=== PATIENT | male | born 1970 | race African-American/Black ===

== ENCOUNTER 2019-03-28 15:49 | Inpatient (IN) | payer OTHER ==
[2019-03-28 19:23] VITALS: BMI 20.6
--- NOTE | 2019-03-28 21:01 | HP ---
COWS - Scale Resting Pulse: 0= [place] 80 or Below Sweatin=Flushed/Facial Moisture Restless Observation: 1= Difficult to Sit Still Pupil Size: 0= Normal to Room Light Bone or Joint Aches: 2= Severe Diffuse Aches Runny Nose/ Eye Tearin= Runny Nose/Eyes GI Upset > 30mins: 3= Vomiting/Diarrhea (vomiting x 2, diarrhea x 1) Tremor Observation: 2= Slight Tremor Visible Yawning Observation: 0= None Anxiety or Irritability: 2=Irritable/Anxious Goose Flesh Skin: 3=Piloerection COWS Score: 17 CIWA Score - Admission Criteria OASAS Guidelines: Admission for Medically Managed Detox: Requires at least one of the followin. CIWA greater than 12 2. Seizures within the past 24 hours 3. Delirium tremens within the past 24 hours 4. Hallucinations within the past 24 hours 5. Acute intervention needed for co occurring medical disorder 6. Acute intervention needed for co occurring psychiatric disorder 7. Severe withdrawal that cannot be handled at a lower level of care (continued vomiting, continued diarrhea, abnormal vital signs) requiring intravenous medication and/or fluids 8. Admitting History and Physical - Smoking History Smoking history: Current every day smoker Have you smoked in the past 12 months: Yes Aproximately how many cigarettes per day: 10 - Alcohol/Substance Use Hx Alcohol Use: Yes Admission ROS [facility] - [facility] Chief Complaint: Heroin withdrawal symptoms Allergies/Adverse Reactions: Allergies Allergy/AdvReac Type Severity Reaction Status Date / Time No Known Drug Allergies Allergy Verified 03/28/19 19:08 History of Present Illness: 48 years old male with a long history of heroin dependence (since 1989) is seeking admission to detox. Patient has been in previous detox, last at [facility] and reports 5 years of sobriety. He denies past medical history and denies suicidal ideation at this time Confidential Drug Utilization Report Search Terms: wayne lutz, 1970 Search Date: 03/28/2019 08:56:52 PM The Drug Utilization Report below displays all of the controlled substance prescriptions, if any, that your patient has filled in the last twelve months. The information displayed on this report is compiled from pharmacy submissions to the Department, and accurately reflects the information as submitted by the pharmacies. There are no results for the search terms that you entered. [address] [facility] Department of Health - [place] of Narcotic Enforcement 03/28/2019 20:56:52 Exam Limitations: No Limitations - Ebola screening Have you traveled outside of the country in the last 21 days: No Have you had contact with anyone from an Ebola affected area: No - Review of Systems Constitutional: Chills, Malaise EENT: reports: No Symptoms Reported Respiratory: reports: No Symptoms reported Cardiac: reports: No Symptoms Reported GI: reports: Abd. Pain w/ defecation, Poor Appetite, Poor Fluid Intake, Vomiting , Abdominal cramping : reports: No Symptoms Reported Musculoskeletal: reports: No Symptoms Reported Integumentary: reports: Dryness, Flushing Neuro: reports: Tremors Endocrine: reports: No Symptoms Reported Hematology: reports: No Symptoms Reported Psychiatric: reports: Judgement Intact, Mood/Affect Appropiate Other Systems: Reviewed and Negative Patient History - Patient Medical History Hx Anemia: No Hx Asthma: No Hx Chronic Obstructive Pulmonary Disease (COPD): No Hx Cancer: No Hx Cardiac Disorders: No Hx Congestive Heart Failure: No Hx Hypertension: No Hx Hypercholesterolemia: No Hx Pacemaker: No HX Cerebrovascular Accident: No Hx Seizures: No Hx Dementia: No Hx Diabetes: No Hx Gastrointestinal Disorders: No Hx Liver Disease: No Hx Genitourinary Disorders: No Hx Sexually Transmitted Disorders: No Hx Renal Disease (ESRD): No Hx Thyroid Disease: No Hx Human Immunodeficiency Virus (HIV): No Hx Hepatitis C: No Hx Depression: No Hx Suicide Attempt: No (Denies suicidal ideation at this time) Hx Bipolar Disorder: No Hx Schizophrenia: No - Patient Surgical History Past Surgical History: Yes Hx Neurologic Surgery: No Hx Cataract Extraction: No Hx Cardiac Surgery: No Hx Lung Surgery: No Hx Breast Surgery: No Hx Breast Biopsy: No Hx Abdominal Surgery: No Hx Appendectomy: No Hx Cholecystectomy: No Hx Genitourinary Surgery: No Hx Section: No Hx Orthopedic Surgery: Yes (1999 mandible fracture) Anesthesia Reaction: No - PPD History Previous Implant?: Yes Documented Results: Negative w/o proof Implanted On Prior [facility] Admission?: Yes Date: 06/17/13 Results: 0 mm PPD to be Administered?: Yes - Reproductive History Patient is a Female of Child Bearing Age (11 -55 yrs old): No (male) - Smoking Cessation Smoking history: Current every day smoker Have you smoked in the past 12 months: Yes Aproximately how many cigarettes per day: 10 Hx Chewing Tobacco Use: No Initiated information on smoking cessation: Yes 'Breaking Loose' booklet given: 03/28/19 - Substances abused Heroin Substance route: Inhalation Frequency: Daily Amount used: 6 bags Age of first use: 19 Date of last use: 03/28/19 Admission Physical Exam [facility] - Vital Signs Vital Signs: Vital Signs - 24 hr 03/28/19 19:15 Temperature 98.8 F Pulse Rate 80 Respiratory 16 Rate Blood Pressure 123/77 - Physical General Appearance: Yes: Moderate Distress, Tremorous, Sweating, Anxious HEENTM: Yes: Within Normal Limits Respiratory: Yes: Lungs Clear, Normal Breath Sounds, No Respiratory Distress Neck: Yes: Supple Breast: Yes: Breast Exam Deferred Cardiology: Yes: Regular Rhythm, Regular Rate Abdominal: Yes: Normal Bowel Sounds, Soft Genitourinary: Yes: Within Normal Limits Back: Yes: Normal Inspection Extremities: Yes: Tremors Neurological: Yes: Fully Oriented, Alert, Motor Strength 5/5 Integumentary: Yes: Normal Color Lymphatic: Yes: Within Normal Limits - Diagnostic (1) Opioid dependence with withdrawal Current Visit: Yes Status: Acute (2) Cocaine dependence with withdrawal Current Visit: Yes Status: Chronic (3) Nicotine dependence Current Visit: Yes Status: Chronic Qualifiers: Nicotine product type: cigarettes Substance use status: uncomplicated Qualified Code(s): F17.210 - Nicotine dependence, cigarettes, uncomplicated Cleared for Admission [facility] - Detox or Rehab [facility] Level of Care: Medically Managed Detox Regimen/Protocol: Methadone Breathalyzer - Breathalyzer Breathalyzer: 0 Urine Drug Screen - Test Device Lot number: [id number] Expiration date: 12/06/20 - Control Is test valid?: Yes - Results Drug screen NEGATIVE: No Urine drug screen results: ALLISON-Cocaine, FEN-Fentanyl, MOP-Opiates, BZO- Benzodiazepines Inpatient Rehab Admission - Rehab Decision to Admit Inpatient rehab admission?: No
[2019-03-28] MEDS ORDERED: MENTHOL/PHENOL 1 EACH UD MM PRN (21:12)
[2019-03-28] MEDS ORDERED: IBUPROFEN 400 MG TABLET (FP) PO PRN (21:12)
[2019-03-28] MEDS ORDERED: MAGNESIUM HYDROX 2400MG/30ML ORAL SUSPENSION 30 ML CUP PO PRN (21:12)
[2019-03-28] MEDS ORDERED: MAGNESIUM CITRATE 300 ML BOTTLE PO PRN (21:12)
[2019-03-28] MEDS ORDERED: cloNIDine HCL 0.1 MG TABLET PO PRN (21:12)
[2019-03-28] MEDS ORDERED: ACETAMINOPHEN 325 MG TABLET (FP) PO PRN ×2 (21:12)
[2019-03-28] MEDS ORDERED: BISMUTH SUBSALICYLATE 524 MG/30 ML UD PO PRN (21:12)
[2019-03-28] MEDS ORDERED: MAG HYDROX/AL HYDROX/SIMETH 30 ML UNIT-DOSE CUP PO PRN (21:12)
[2019-03-28] MEDS ORDERED: METHADONE HCL 10 MG TABLET (FOR DETOX USE ONLY) PO ONE (22:15)
[2019-03-28] MEDS: THIAMINE HCL 100 MG TABLET (FP) PO SCH (22:32)
[2019-03-29] MEDS ORDERED: METHADONE HCL 5 MG TABLET (FOR DETOX USE ONLY) PO ONE (10:00)
[2019-03-29] MEDS: hydrOXYzine PAMOATE 25 MG CAPSULE (FP) PO PRN ×2 (10:13→21:36)
[2019-03-29] MEDS: PRENATAL VITAMINS W/ FOLIC ACID TABLET (FP) PO SCH (10:13)
[2019-03-29] MEDS: METHOCARBAMOL 500 MG TABLET PO PRN ×2 (10:13→21:36)
[2019-03-29 10:18] LABS: HEMATOCRIT 39.1 % (35.4-49); HEMOGLOBIN 12.7 GM/dL (11.7-16.9); MCH 30.5 pg (25.7-33.7); MCHC 32.5 g/dl (32.0-35.9); MEAN CELL VOLUME 93.8 fl (80-96); MEAN PLT VOLUME 7.8 fl (7.5-11.1); PLATELET COUNT 233 K/MM3 (134-434); RBC 4.17 M/mm3 (4.00-5.60); RDW 13.5 % (11.9-15.9); WHITE BLOOD COUNT 3.8 K/mm3 (4.0-10.0)
[2019-03-29 10:34] LABS: ALBUMIN 3.1 g/dl (3.4-5.0); BILIRUBIN,TOTAL 0.3 mg/dL (0.2-1); BLOOD UREA NITROGEN 14.4 mg/dL (7-18); CALCIUM 8.5 mg/dL (8.5-10.1); CREATININE 1.1 mg/dL (0.55-1.3); POTASSIUM 4.7 mmol/L (3.5-5.1); TOT PROT 5.8 g/dl (6.4-8.2)
--- NOTE | 2019-03-29 10:37 | EKG ---
Test Reason : Blood Pressure : / mmHG Vent. Rate : 062 BPM Atrial Rate : 062 BPM P-R Int : 108 ms QRS Dur : 086 ms QT Int : 404 ms P-R-T Axes : 054 068 066 degrees QTc Int : 410 ms SINUS RHYTHM WITH SHORT KS MODERATE VOLTAGE CRITERIA FOR LVH, MAY BE NORMAL VARIANT BORDERLINE ECG NO PREVIOUS ECGS AVAILABLE Confirmed by KEVIN ROCHA, TERESA ([id number]) on 03/29/2019 10:36:44 AM Referred By: Confirmed By:TERESA BROWN MD
--- NOTE | 2019-03-29 13:04 | PN ---
BHS COWS - Scale Resting Pulse: 0= [place] 80 or Below Sweatin= Chills/Flushing Restless Observation: 0= Sits Still Pupil Size: 1= Pupils >than Normal Bone or Joint Aches: 2= Severe Diffuse Aches Runny Nose/ Eye Tearin= Nasal Congestion GI Upset > 30mins: 1= Stomach Cramp Tremor Observation of Outstretched Hands: 2= Slight Tremor Visible Yawning Observation: 1= 1-2x During Session Anxiety or Irritability: 2=Irritable/Anxious Goose Flesh Skin: 3=Piloerection COWS Score: 14 BHS Progress Note (SOAP) Subjective: 48 years old male admitted on 03/28/19 for opiate withdrawal sx management treated with methadone detox regimen body aches joints pain restlessness Objective: 03/29/19 13:06 Vital Signs Temperature 97.5 F L 03/29/19 09:13 Pulse Rate 67 03/29/19 09:13 Respiratory Rate 18 03/29/19 09:13 Blood Pressure 107/68 03/29/19 09:13 O2 Sat by Pulse Oximetry (%) Laboratory Last Values WBC 3.8 K/mm3 (4.0-10.0) L 03/29/19 08:15 RBC 4.17 M/mm3 (4.00-5.60) 03/29/19 08:15 Hgb 12.7 GM/dL (11.7-16.9) 03/29/19 08:15 Hct 39.1 % (35.4-49) 03/29/19 08:15 MCV 93.8 fl (80-96) 03/29/19 08:15 MCH 30.5 pg (25.7-33.7) 03/29/19 08:15 MCHC 32.5 g/dl (32.0-35.9) 03/29/19 08:15 RDW 13.5 % (11.9-15.9) 03/29/19 08:15 Plt Count 233 K/MM3 (134-434) 03/29/19 08:15 MPV 7.8 fl (7.5-11.1) 03/29/19 08:15 Sodium 143 mmol/L (136-145) 03/29/19 08:15 Potassium 4.7 mmol/L (3.5-5.1) 03/29/19 08:15 Chloride 110 mmol/L (98-107) H 03/29/19 08:15 Carbon Dioxide 31 mmol/L (21-32) 03/29/19 08:15 Anion Gap 2 MMOL/L (8-16) L 03/29/19 08:15 BUN 14.4 mg/dL (7-18) 03/29/19 08:15 Creatinine 1.1 mg/dL (0.55-1.3) 03/29/19 08:15 Est GFR (CKD-EPI)AfAm 90.88 03/29/19 08:15 Est GFR (CKD-EPI)NonAf 78.41 03/29/19 08:15 Random Glucose 87 mg/dL (74-106) 03/29/19 08:15 Calcium 8.5 mg/dL (8.5-10.1) 03/29/19 08:15 Total Bilirubin 0.3 mg/dL (0.2-1) 03/29/19 08:15 AST 21 U/L (15-37) 03/29/19 08:15 ALT 41 U/L (13-61) 03/29/19 08:15 Alkaline Phosphatase 57 U/L (45-117) 03/29/19 08:15 Total Protein 5.8 g/dl (6.4-8.2) L 03/29/19 08:15 Albumin 3.1 g/dl (3.4-5.0) L 03/29/19 08:15 RPR Titer Nonreactive (NONREACTIVE) 03/29/19 08:15 lab noted Assessment: 03/29/19 13:06 opiate withdrawal sx Plan: continue methadone detox regimen
[2019-03-29] MEDS: THIAMINE HCL 100 MG TABLET (FP) PO SCH (21:36)
[2019-03-29] MEDS: MELATONIN 5 MG TABLETS PO PRN (21:36)
[2019-03-30] MEDS ORDERED: METHADONE HCL 10 MG TABLET (FOR DETOX USE ONLY) PO ONE (10:00)
[2019-03-30] MEDS: PRENATAL VITAMINS W/ FOLIC ACID TABLET (FP) PO SCH (10:06)
--- NOTE | 2019-03-30 13:28 | PN ---
BHS COWS - Scale Resting Pulse: 0= [place] 80 or Below Sweatin= Chills/Flushing Restless Observation: 0= Sits Still Pupil Size: 1= Pupils >than Normal Bone or Joint Aches: 1= Mild Discomfort Runny Nose/ Eye Tearin= Nasal Congestion GI Upset > 30mins: 1= Stomach Cramp Tremor Observation of Outstretched Hands: 1= Tremor [place], Not Seen Yawning Observation: 1= 1-2x During Session Anxiety or Irritability: 2=Irritable/Anxious Goose Flesh Skin: 0=Smooth Skin COWS Score: 9 BHS Progress Note (SOAP) Subjective: 48 YEARS OLD MALE ADMITTED ON 03/28/19 FOR OPIATE WITHDRAWAL SX MANAGEMENT TREATED WITH METHADONE DETOX REGIMEN FEELING BETTER TODAY SLEPT THROUGH THE NIGHT TOLERATED FOOD AND FLUID WELL MILD BODY ACHE LESS TREMOR DISCUSS MEDICATION ASSISTED TREATMENT PROGRAM AND PAPER [place] MACHINE TENDER NARCAN FROM PHARMACY Objective: 03/30/19 13:27 Vital Signs Temperature 98.4 F 03/30/19 12:59 Pulse Rate 59 L 03/30/19 12:59 Respiratory Rate 18 03/30/19 12:59 Blood Pressure 125/78 03/30/19 12:59 O2 Sat by Pulse Oximetry (%) Laboratory Last Values WBC 3.8 K/mm3 (4.0-10.0) L 03/29/19 08:15 RBC 4.17 M/mm3 (4.00-5.60) 03/29/19 08:15 Hgb 12.7 GM/dL (11.7-16.9) 03/29/19 08:15 Hct 39.1 % (35.4-49) 03/29/19 08:15 MCV 93.8 fl (80-96) 03/29/19 08:15 MCH 30.5 pg (25.7-33.7) 03/29/19 08:15 MCHC 32.5 g/dl (32.0-35.9) 03/29/19 08:15 RDW 13.5 % (11.9-15.9) 03/29/19 08:15 Plt Count 233 K/MM3 (134-434) 03/29/19 08:15 MPV 7.8 fl (7.5-11.1) 03/29/19 08:15 Sodium 143 mmol/L (136-145) 03/29/19 08:15 Potassium 4.7 mmol/L (3.5-5.1) 03/29/19 08:15 Chloride 110 mmol/L (98-107) H 03/29/19 08:15 Carbon Dioxide 31 mmol/L (21-32) 03/29/19 08:15 Anion Gap 2 MMOL/L (8-16) L 03/29/19 08:15 BUN 14.4 mg/dL (7-18) 03/29/19 08:15 Creatinine 1.1 mg/dL (0.55-1.3) 03/29/19 08:15 Est GFR (CKD-EPI)AfAm 90.88 03/29/19 08:15 Est GFR (CKD-EPI)NonAf 78.41 03/29/19 08:15 Random Glucose 87 mg/dL (74-106) 03/29/19 08:15 Calcium 8.5 mg/dL (8.5-10.1) 03/29/19 08:15 Total Bilirubin 0.3 mg/dL (0.2-1) 03/29/19 08:15 AST 21 U/L (15-37) 03/29/19 08:15 ALT 41 U/L (13-61) 03/29/19 08:15 Alkaline Phosphatase 57 U/L (45-117) 03/29/19 08:15 Total Protein 5.8 g/dl (6.4-8.2) L 03/29/19 08:15 Albumin 3.1 g/dl (3.4-5.0) L 03/29/19 08:15 RPR Titer Nonreactive (NONREACTIVE) 03/29/19 08:15 LAB NOTED Assessment: 03/30/19 13:27 OPAITE WITHDRAWAL SX Plan: CONTINUE METHADONE DETOX REGIMEN
[2019-03-30] MEDS: METHOCARBAMOL 500 MG TABLET PO PRN (22:21)
[2019-03-30] MEDS: THIAMINE HCL 100 MG TABLET (FP) PO SCH (22:21)
[2019-03-30] MEDS: hydrOXYzine PAMOATE 25 MG CAPSULE (FP) PO PRN (22:21)
[2019-03-30] MEDS: MELATONIN 5 MG TABLETS PO PRN (22:22)
[2019-03-31] MEDS ORDERED: METHADONE HCL 5 MG TABLET (FOR DETOX USE ONLY) PO ONE (06:00)
[2019-03-31 07:30] VITALS: BP 113/71; PULSE 84; TEMP 97.1
--- NOTE | 2019-03-31 08:57 | PN ---
BHS COWS - Scale Resting Pulse: 1= [place] 81-100 Sweatin= No chills or Flushing Restless Observation: 0= Sits Still Pupil Size: 0= Normal to Room Light Bone or Joint Aches: 1= Mild Discomfort Runny Nose/ Eye Tearin= None GI Upset > 30mins: 0= None Tremor Observation of Outstretched Hands: 0= None Yawning Observation: 0= None Anxiety or Irritability: 1=Feels Anxious/Irritable Goose Flesh Skin: 0=Smooth Skin COWS Score: 3 BHS Progress Note (SOAP) Subjective: alert,no complaint Objective: 03/31/19 08:56 Vital Signs Temperature 97.1 F L 03/31/19 07:29 Pulse Rate 84 03/31/19 07:29 Respiratory Rate 18 03/31/19 07:29 Blood Pressure 113/71 03/31/19 07:29 O2 Sat by Pulse Oximetry (%) Assessment: 03/31/19 08:56 no withdrawal symptom Plan: stable for discharge,follow up with after care program as arrangement
--- NOTE | 2019-03-31 08:59 | DS ---
[facility] Detox Discharge Summary Admission Date: 03/28/19 Discharge Date: 03/31/19 - History Present History: Opioid Dependence Additional Comments: follow up with after care program as arrangement - Physical Exam Results Vital Signs: Vital Signs Temperature 97.1 F L 03/31/19 07:29 Pulse Rate 84 03/31/19 07:29 Respiratory Rate 18 03/31/19 07:29 Blood Pressure 113/71 03/31/19 07:29 O2 Sat by Pulse Oximetry (%) Pertinent Admission Physical Exam Findings: withdrawal signs and symptom Laboratory Last Values WBC 3.8 K/mm3 (4.0-10.0) L 03/29/19 08:15 RBC 4.17 M/mm3 (4.00-5.60) 03/29/19 08:15 Hgb 12.7 GM/dL (11.7-16.9) 03/29/19 08:15 Hct 39.1 % (35.4-49) 03/29/19 08:15 MCV 93.8 fl (80-96) 03/29/19 08:15 MCH 30.5 pg (25.7-33.7) 03/29/19 08:15 MCHC 32.5 g/dl (32.0-35.9) 03/29/19 08:15 RDW 13.5 % (11.9-15.9) 03/29/19 08:15 Plt Count 233 K/MM3 (134-434) 03/29/19 08:15 MPV 7.8 fl (7.5-11.1) 03/29/19 08:15 Sodium 143 mmol/L (136-145) 03/29/19 08:15 Potassium 4.7 mmol/L (3.5-5.1) 03/29/19 08:15 Chloride 110 mmol/L (98-107) H 03/29/19 08:15 Carbon Dioxide 31 mmol/L (21-32) 03/29/19 08:15 Anion Gap 2 MMOL/L (8-16) L 03/29/19 08:15 BUN 14.4 mg/dL (7-18) 03/29/19 08:15 Creatinine 1.1 mg/dL (0.55-1.3) 03/29/19 08:15 Est GFR (CKD-EPI)AfAm 90.88 03/29/19 08:15 Est GFR (CKD-EPI)NonAf 78.41 03/29/19 08:15 Random Glucose 87 mg/dL (74-106) 03/29/19 08:15 Calcium 8.5 mg/dL (8.5-10.1) 03/29/19 08:15 Total Bilirubin 0.3 mg/dL (0.2-1) 03/29/19 08:15 AST 21 U/L (15-37) 03/29/19 08:15 ALT 41 U/L (13-61) 03/29/19 08:15 Alkaline Phosphatase 57 U/L (45-117) 03/29/19 08:15 Total Protein 5.8 g/dl (6.4-8.2) L 03/29/19 08:15 Albumin 3.1 g/dl (3.4-5.0) L 03/29/19 08:15 RPR Titer Nonreactive (NONREACTIVE) 03/29/19 08:15 - Treatment Hospital Course: Detox Protocol Followed, Detoxed Safely, Responded well, Discharged Condition Good Patient has Accepted a Rehab Referral to: declined - Medication Discharge Medications: Ambulatory Orders Naloxone HCl [Narcan] 4 mg NS ASDIR PRN #1 spray 03/29/19 - Diagnosis (1) Opioid dependence with withdrawal Status: Acute (2) Nicotine dependence Status: Chronic Qualifiers: Nicotine product type: cigarettes Substance use status: uncomplicated Qualified Code(s): F17.210 - Nicotine dependence, cigarettes, uncomplicated
== END 2019-03-31 07:00 | disposition home or self-care (01) | DRG 773 ==
LOC: YASAS 15:49 → Y3N 22:05
PROVIDERS: ADMIT Allergy & Immunology; ATTEND Allergy & Immunology
PROC: HZ2ZZZZ Detoxification Services for Substance Abuse Treatment (ICD-10-PCS; principal; 2019-03-28)
DX: F11.23 Opioid dependence with withdrawal (principal); F14.20 Cocaine dependence, uncomplicated; F17.210 Nicotine dependence, cigarettes, uncomplicated
CPT/HCPCS: 36415; 80053; 85027; 86593; 93005; 93010